=== PATIENT | male | born 1970 | race Asian ===

== ENCOUNTER 2018-07-21 17:56 | Emergency (ER) | payer OTHER ==
[~2018-07-21] VITALS: Ht 172.7 cm; Wt 68.0 kg
[~2018-07-21 17:56] MED LIST: BENADRYL A12.5 MG/5 PO; BENZTROPINE2 MG PO; BISACODYL5 M1 PO; CLOZ100T PO; CLOZARIL100 MG PO; DIPH12.521 PO; DIVA250T2 PO; DIVA500T2 PO; DIVALPROEX250 M1 PO; DIVALPROEX500 M1 PO; ESCI10TA PO; FERROUS SULF325 M1 PO; FLEET ENEMA RE; INSUINJ20 SC; KAOPECTATE262 MG/15 PO; LACTSYP31 PO; LEXAPRO10 MG PO; LIPITOR20 MG PO; LISI10TA11 PO; MEDROXYPROG150 MG/ML IM; MICRO-K10 MEQ PO; MIRTAZAPINE7.5 MG PO; OXYBUTYNIN15 MG PO; PROM25IN5 INJ; PROP40TA53 PO; PROPRANOLOL10 MG PO; PROTEINE1 PO; RISP0.5T2 PO; RISP1TAB PO; RISP25IN IM; ROBAFEN100 MG/5 M PO; ROBITUSSIN PEAK COL3 PO; SENOKOT8.6 MG PO; TRILEPTAL300 MG PO; ZIPR20CA PO; ZIPR80CA PO; [UNRECOGNIZED DRUG - OTHER] INH
[2018-07-21 18:36] LABS: PLATELET COUNT 219 K/uL (142-355)
[2018-07-21 19:27] VITALS: BP 136/84; TEMP 97.6
[2018-07-21] MEDS ORDERED: ATOR20TA2 PO (23:09)
[2018-07-21] MEDS ORDERED: CLOZ100T PO (23:12)
[2018-07-21] MEDS ORDERED: CLOZAPINE100 MG PO (23:21)
[2018-07-21] MEDS ORDERED: RISPERDAL3 MG PO (23:35)
[2018-07-21] MEDS ORDERED: DIVA250T2 PO (23:50)
[2018-07-21] MEDS ORDERED: DIVA500T2 PO (23:59)
[2018-07-22] MEDS ORDERED: PAIN RELIEF500 M1 PO (00:04)
[2018-07-22] MEDS ORDERED: ALUMSUS6 PO (00:06)
[2018-07-22] MEDS ORDERED: OXYGEN NAS (00:40)
[2018-08-04] MEDS ORDERED: CLOZAPINE100 MG PO (12:13)
[2018-08-04] MEDS ORDERED: RISPERDAL3 MG PO (12:14)
== END 2018-07-21 19:27 | disposition other institution (70) ==
LOC: ED 17:56
PROVIDERS: Emergency Medicine
DX: F28 Other psychotic disorder not due to a substance or known physiological condition (principal); F91.8 Other conduct disorders; Z04.6 Encounter for general psychiatric examination, requested by authority
CPT/HCPCS: 36415; 80053; 81000; 85027; 93005; 99285

== ENCOUNTER 2018-11-22 18:14 | Emergency (ER) | payer OTHER ==
[~2018-11-22] VITALS: Ht 172.7 cm; Wt 77.1 kg
[~2018-11-22 18:14] MED LIST changes: +ALUMSUS6 PO; +ATOR20TA2 PO; +CLOZAPINE100 MG PO; +OXYGEN NAS; +PAIN RELIEF500 M1 PO; +RISPERDAL3 MG PO
[2018-11-22 18:52] LABS: PLATELET COUNT 245 K/uL (142-355)
[2018-11-22 20:00] VITALS: BP 131/81; TEMP 98
[2018-11-22] MEDS ORDERED: METO50TA63 PO (23:13)
[2018-11-22] MEDS ORDERED: MIRALAX3350 N1 PO (23:14)
[2018-11-22] MEDS ORDERED: RISP25IN IM (23:15)
[2018-11-22] MEDS ORDERED: TYLENOL325 MG PO (23:18)
== END 2018-11-22 20:00 | disposition other institution (70) ==
LOC: ED 18:14
PROVIDERS: Emergency Medicine
DX: R46.89 Other symptoms and signs involving appearance and behavior (principal); F20.89 Other schizophrenia; F32.89 Other specified depressive episodes; Z04.6 Encounter for general psychiatric examination, requested by authority; R00.0 Tachycardia, unspecified
CPT/HCPCS: 36415; 80053; 85027; 93005; 99285

== ENCOUNTER 2019-09-21 18:50 | Emergency (ER) | payer OTHER ==
[~2019-09-21] VITALS: Ht 175.3 cm; Wt 68.0 kg
[~2019-09-21 18:50] MED LIST changes: +BENZ1TAB43 PO; +FERRETTS325 MG PO; +FLUP10TA3 PO; +MAGN400T4 PO; +METO50TA63 PO; +MIRALAX3350 N1 PO; +MULTTAB52 PO; +OMEPRAZOLE DR40 MG PO; +RISP0.25 PO; +RISP50IN IM; +TYLENOL325 MG PO; +VITAMIN D31000 UNI1 PO; +[UNRECOGNIZED DRUG - CODE] PO
[2019-09-21 19:00] VITALS: BP 113/63; TEMP 97.3
[2019-09-21 19:12] LABS: PLATELET COUNT 243 K/uL (142-355)
[2019-09-21 19:19] LABS: POTASSIUM 4.6 mmol/L (3.6-5.2)
[2019-09-21] MEDS ORDERED: RISP50IN IM (20:44)
[2019-09-21] MEDS ORDERED: RISP0.5T2 PO (20:47)
[2019-09-21] MEDS ORDERED: RISP2TAB2 PO (20:48)
[2019-09-21] MEDS ORDERED: RISP0.25 PO (20:51)
== END 2019-09-21 21:30 | disposition still patient (30) ==
LOC: ED 18:50
PROVIDERS: Emergency Medicine
DX: R44.0 Auditory hallucinations (principal); R45.851 Suicidal ideations; Z04.6 Encounter for general psychiatric examination, requested by authority
CPT/HCPCS: 36415; 80053; 85027; 93005; 99283; 99285

== ENCOUNTER 2019-11-08 14:34 | Emergency (ER) | payer OTHER ==
[~2019-11-08] VITALS: Ht 175.3 cm; Wt 64.9 kg
[~2019-11-08 14:34] MED LIST changes: +RISP2TAB2 PO
[2019-11-08 14:57] LABS: PLATELET COUNT 199 K/uL (142-355)
[2019-11-08 15:46] VITALS: BP 143/86; TEMP 97.8
== END 2019-11-08 15:46 | disposition other institution (70) ==
LOC: ED 14:34
PROVIDERS: Family Medicine
DX: F20.89 Other schizophrenia (principal); R46.89 Other symptoms and signs involving appearance and behavior; I48.91 Unspecified atrial fibrillation; Z04.6 Encounter for general psychiatric examination, requested by authority
CPT/HCPCS: 80053; 81000; 85027; 93005; 99283; 99285

== ENCOUNTER 2020-04-11 19:04 | Emergency (ER) | payer OTHER ==
[~2020-04-11] VITALS: Ht 175.3 cm; Wt 67.1 kg
[~2020-04-11 19:04] MED LIST changes: +DIVA250T PO; +DIVALPROEX500 MG PO; +FLUOXETINE20 MG PO
[2020-04-11 19:57] LABS: PLATELET COUNT 180 K/uL (142-355)
[2020-04-11 20:05] LABS: POTASSIUM 3.7 mmol/L (3.6-5.2)
[2020-04-11 20:53] VITALS: BP 118/71; TEMP 98.7
[2020-04-12] MEDS ORDERED: ESOMEPRAZOLE MA40 MG PO (00:03)
[2020-04-12] MEDS ORDERED: METAMUCIL28.3 % PO (00:06)
== END 2020-04-11 20:55 | disposition other institution (70) ==
LOC: ED 19:04
PROVIDERS: Emergency Medicine
DX: F20.89 Other schizophrenia (principal); R46.89 Other symptoms and signs involving appearance and behavior; Z11.59 Encounter for screening for other viral diseases; Z04.6 Encounter for general psychiatric examination, requested by authority
CPT/HCPCS: 36415; 80053; 85027; 87635; 93005; 99283; U0002

== ENCOUNTER 2020-08-20 20:00 | Emergency (ER) | payer OTHER ==
[~2020-08-20] VITALS: Ht 182.9 cm; Wt 59.0 kg
[~2020-08-20 20:00] MED LIST changes: +ESOMEPRAZOLE MA40 MG PO; +METAMUCIL28.3 % PO
[2020-08-20 21:18] LABS: PLATELET COUNT 191 K/uL (142-355)
[2020-08-20 21:28] LABS: POTASSIUM 4.2 mmol/L (3.6-5.2)
[2020-08-20 22:15] VITALS: BP 144/80; TEMP 98.1
[2020-08-21] MEDS ORDERED: LINZESS145 MCG PO (14:52)
[2020-08-21] MEDS ORDERED: METACMUCIL PO (14:55)
[2020-08-21] MEDS ORDERED: MULT VITAMIN PO (14:56)
[2020-08-21] MEDS ORDERED: OMEPRAZOLE20 M1 PO (14:59)
[2020-08-21] MEDS ORDERED: POLY GLYCOL3350 M1 PO (15:01)
[2020-08-21] MEDS ORDERED: LACTULOSE10 GM/151 PO (15:04)
[2020-08-21] MEDS ORDERED: MAG OXIDE400 MG PO (15:05)
== END 2020-08-20 22:15 | disposition still patient (30) ==
LOC: ED 20:27
PROVIDERS: Emergency Medicine Emergency Medical Services
DX: F32.89 Other specified depressive episodes (principal); R45.851 Suicidal ideations; Z11.59 Encounter for screening for other viral diseases; Z04.6 Encounter for general psychiatric examination, requested by authority
CPT/HCPCS: 36415; 80053; 85027; 87635; 93005; 99283; 99285; U0003

== ENCOUNTER 2021-02-22 13:12 | Emergency (ER) | payer OTHER ==
[~2021-02-22] VITALS: Ht 172.7 cm; Wt 58.5 kg
[~2021-02-22 13:12] MED LIST changes: +DULO30CA PO; +LACTULOSE10 GM/151 PO; +LINZESS145 MCG PO; +MAG OXIDE400 MG PO; +METACMUCIL PO; +MULT VITAMIN PO; +OMEPRAZOLE20 M2 PO; +POLY GLYCOL3350 M1 PO; +SCOP1.5D TOP; -VITAMIN D31000 UNI1 PO; +VITAMIN D31000 UNIT PO
[2021-02-22 13:40] LABS: PLATELET COUNT 226 K/uL (142-355)
[2021-02-22 13:44] LABS: POTASSIUM 3.8 mmol/L (3.6-5.2)
[2021-02-22 14:42] VITALS: BP 117/81; TEMP 98.8
[2021-02-22] MEDS ORDERED: FLUP10TA3 PO (14:45)
[2021-02-22] MEDS ORDERED: OMEPRAZOLE DR40 MG PO (14:50)
[2021-02-22] MEDS ORDERED: ENSURE PO (14:56)
== END 2021-02-22 14:42 | disposition other institution (70) ==
LOC: ED 13:12
PROVIDERS: Family Medicine
DX: F20.89 Other schizophrenia (principal); T14.91XA Suicide attempt, initial encounter; Z11.52 Encounter for screening for COVID-19; Z04.6 Encounter for general psychiatric examination, requested by authority; T55.0X2A Toxic effect of soaps, intentional self-harm, initial encounter; T49.8X2A Poisoning by other topical agents, intentional self-harm, initial encounter; Y92.89 Other specified places as the place of occurrence of the external cause
CPT/HCPCS: 80053; 85027; 87635; 93005; 99283; U0003

== ENCOUNTER 2021-05-02 19:25 | Emergency (ER) | payer OTHER ==
[~2021-05-02] VITALS: Ht 172.7 cm; Wt 63.5 kg
[~2021-05-02 19:25] MED LIST changes: +CLINDAMYCIN HC150 MG PO; +ENSURE PO; +IBU800 MG PO; +METO-837 PO; +NICODERM C21 MG/241 TD
[2021-05-02 19:28] VITALS: BP 121/86; TEMP 98.2
[2021-05-02 20:01] LABS: PLATELET COUNT 193 K/uL (142-355)
[2021-05-02 20:02] LABS: POTASSIUM 4.7 mmol/L (3.6-5.2)
[2021-05-02] MEDS ORDERED: BENZ1TAB43 PO (23:32)
[2021-05-02] MEDS ORDERED: LIPITOR20 MG PO (23:32)
[2021-05-02] MEDS ORDERED: DIVALPROEX250 M1 PO (23:33)
[2021-05-02] MEDS ORDERED: DIVALPROEX500 MG PO (23:35)
[2021-05-02] MEDS ORDERED: DRIZALMA SPRINK30 MG PO (23:36)
[2021-05-02] MEDS ORDERED: ACETAMINOPHEN PO (23:38)
[2021-05-02] MEDS ORDERED: LACTSYP31 PO (23:45)
== END 2021-05-02 21:19 | disposition still patient (30) ==
LOC: ED 19:30
PROVIDERS: Emergency Medicine
DX: F03.91 Unspecified dementia, unspecified severity, with behavioral disturbance (principal); R45.1 Restlessness and agitation; Z11.52 Encounter for screening for COVID-19; Z04.6 Encounter for general psychiatric examination, requested by authority
CPT/HCPCS: 80053; 81000; 85027; 87635; 93005; 99283; U0003